=== PATIENT | male | born 2000 | race Caucasian/White ===

== ENCOUNTER 2023-11-29 12:54 | Emergency (ER) | payer MEDICAID ==
[~2023-11-29] VITALS: Ht 195.6 cm; Wt 80.3 kg
[2023-11-29 17:43] VITALS: BP 117/76; PULSE 66; RESP 16; TEMP 98.3; O2SAT 99
== END 2023-11-29 17:44 | disposition home or self-care (01) ==
LOC: ER 12:55
DX: R51.9 Headache, unspecified (principal)
CPT/HCPCS: 70450; 99284

== ENCOUNTER 2023-12-13 20:00 | Emergency (ER) | payer MEDICAID ==
[~2023-12-13] VITALS: Ht 195.6 cm; Wt 79.0 kg
[2023-12-13 20:54] VITALS: BP 128/83; PULSE 102; RESP 18; TEMP 99; O2SAT 99
[2023-12-13] MEDS: amox tr/potassium clavulanate 875/125mg TAB PO ONE (21:55)
[2023-12-13] MEDS ORDERED: CIPR10DR RIGHT EAR (21:59)
[2023-12-13] MEDS ORDERED: AMOX-117 PO (21:59)
== END 2023-12-13 22:06 | disposition home or self-care (01) ==
LOC: ER 20:00
DX: H72.91 Unspecified perforation of tympanic membrane, right ear (principal)
CPT/HCPCS: 99283

== ENCOUNTER 2025-05-08 15:50 | Emergency (ER) | payer MEDICAID ==
[~2025-05-08] VITALS: Ht 195.6 cm; Wt 80.1 kg
[2025-05-08 15:54] VITALS: TEMP 97
--- NOTE | 2025-05-08 16:06 | ELECTROCARDIOGRAPH REPORT ---
[facility] Test Date: 2025-05-08 Test Time: 16:04:12 Pat Name: MEGAN LOZADA Department: EMERGENCY ROOM Room: Gender: M Genetics Physician: MANDA : [id number] Requested By: YUKI SOLARES Order Number: [id number] Reading MD: Dr. Yuki Solares Measurements Intervals Smiley Rate: 77 P: 3 TX: 88 QRS: 80 QRSD: 113 T: 51 QT: 361 QTc: 409 Interpretive Statements Sinus rhythm Short TX interval Incomplete right bundle branch block Electronically Signed On 05-08-2025 16:11:[address] Yuki Solares Please click the below link to view image of tracing.
--- NOTE | 2025-05-08 16:35 | RADIOLOGY REPORT ---
EXAM: DI CHEST,SINGLE VIEW CLINICAL HISTORY: CP TECHNIQUE: Single PA view of the chest WID: COMPARISON: None FINDINGS: Lines and tubes: None Chest: The heart size and pulmonary vasculature is within normal limits. No pleural effusion, pneumothorax, or consolidation. The osseous structures are grossly intact. IMPRESSION: 1. No acute cardiopulmonary abnormality.
[2025-05-08 16:43] LABS: MEAN PLATELET VOLUME 7.2 FL (7.4-10.4); RED CELL DISTRIBUTION WIDTH 13.1 % (11.5-14.5)
[2025-05-08 17:06] LABS: CREATININE 0.91 MG/DL (0.60-1.10); PRO BRAIN NATRIURETIC PEPTIDE 42 PG/ML (0-125); TOTAL CARBON DIOXIDE 27.3 MMOL/L (24-32); eCRCL 142 ML/MIN; eGFR > 90 ML/MIN
--- NOTE | 2025-05-08 17:20 | Physician Documentation ---
History of Present Illness ~ Chief Complaint: Chest Pain Stated Complaint: CHEST PRESSURE Time Seen by MD: 16:35 Source: patient, family Mode of Arrival: POV Exam Limitations: no limitations HPI Patient presents secondary to chest pressure. He states onset chest pressure at rest at 10:00 a.m. this morning with associated shortness for breath. Location in the center of the chest and nonradiating. Initially was rated 5/10 now 2/10. 2-3 days ago his family member states he had a near syncopal episode. He was sitting in a chair and felt his vision go dark. No syncope. Medication Reconciliation Allergies: Coded Allergies: No Known Allergies (Unverified , 05/08/25) Past Medical History Past Medical History: No Pertinent History, Hypertension Past Surgical History: no surgical history Smoking Status: Never smoker Alcohol Use: None Drug Use: none Review of Systems ROS Systems negative except documented in HPI. Physical Exam Vital Signs: RN Vital Signs have been reviewed: Yes, Temperature: 97.0, Source: Temporal, Heart Rate: 88, Respiratory Rate: 16, BP: 143/77, Pulse Oximetry: 99, Weight: 80.100 Oxygen Flow Rate: 0 Pulse Oximetry Reflects: adequate oxygenation Physical Exam General: Awake, alert, oriented. No apparent distress Respiratory: Lungs are clear to auscultation bilaterally. No respiratory distress. Chest: Normal shape and size. No accessory muscle use. Cardiovascular: Regular rate and rhythm. S1-S2. No murmur, gallop, rub. Gastrointestinal: Abdomen is soft. Nontender to palpation. Bowel sounds present. Extremities: No lower extremity edema, cyanosis or clubbing. Neurologic: Alert and oriented x4. Nonfocal Psychiatric: Normal mood and affect. Skin: Normal color. Warm and dry. Progress Results/Orders Results/Orders Completed Orders - SUNIL CHILDRESS PROFESSOR OF COUNSELING ESR (05/08/25 18:05) Vital Signs 05/08/25 05/08/25 05/08/25 15:54 17:43 19:16 Temp 97.0 Pulse 88 78 Resp 16 16 15 B/P (MAP) 143/77 102/71 (81) Pulse Ox 99 100 O2 Flow Rate 0 Laboratory Tests Test 05/08/25 16:36 05/08/25 18:06 White Blood Count 6.5 Red Blood Count 5.39 Hemoglobin 17.0 Hematocrit 49.1 Mean Corpuscular Volume 91.1 Mean Corpuscular Hemoglobin 31.6 H Mean Corpuscular Hemoglobin Concent 34.7 Red Cell Distribution Width 13.1 Platelet Count 240 Mean Platelet Volume 7.2 L Neutrophils (%) (Auto) 77.8 H Lymphocytes (%) (Auto) 16.7 L Monocytes (%) (Auto) 4.7 Eosinophils (%) (Auto) 0.4 Basophils (%) (Auto) 0.4 Neutrophils # (Auto) 5.0 Lymphocytes # (Auto) 1.1 Monocytes # (Auto) 0.3 Eosinophils # (Auto) 0.0 Basophils # (Auto) 0.0 CBC Comment Erythrocyte Sedimentation Rate 1 Sodium Level 139 Potassium Level 3.8 Chloride Level 104 Carbon Dioxide Level 27.3 Anion Gap 8 Blood Urea Nitrogen 11 Creatinine 0.91 Estimated GFR/1.73 m2 > 90 BUN/Creatinine Ratio 12.1 Glucose Level 101 Calcium Level 9.4 Troponin I High Sensitivity 7 7 C-Reactive Protein < 0.05 Pro-B-Type Natriuretic Peptide 42 Albumin 4.6 Chemistry Comments Troponin I High Sens Percent Delta 0 Troponin I Hi Sens Absolute Change 0 EKG/XRAY/CT/US/VASC/MRI EKG : Intepreting Monitor?: Yes Indication: chest pain EKG: NSR EKG Blocks: none [place]: normal Hypertrophy: none Additional Comment Independent EKG interpretation by me: Sinus rhythm rate of 77. [place] is normal. NH interval short of 88 milliseconds. Monitor interpretation, sinus arrhythmia with bursts of paroxysmal atrial tachycardia. Chest X-Ray : Interpreted By: both Views: 1 VIEW Indication: chest pain Lungs: normal Mediastinum: normal Ribs/Bones: normal Impression: no acute disease Additional Comments [address] [address] DIAGNOSTIC RADIOLOGY Patient: MEGAN LOZADA Medical Record: [id number] [facility] : 2000, Age: 24 Sex: Male Location: ER Patient Status: REG ER Service Date/Time: 05/08/251599 Ordering Physician: YUKI SOLARES MD Exam: CHEST,SINGLE VIEW EXAM: DI CHEST,SINGLE VIEW CLINICAL HISTORY: CP TECHNIQUE: Single PA view of the chest WID: COMPARISON: None FINDINGS: Lines and tubes: None Chest: The heart size and pulmonary vasculature is within normal limits. No pleural effusion, pneumothorax, or consolidation. The osseous structures are grossly intact. IMPRESSION: 1. No acute cardiopulmonary abnormality. Electronically Signed by:SUNG VERNON MD Date & Time: 05/08/251632 Dictated by: SUNG VERNON MD Dictation date and time: 05/08/251632 Primary Care Provider: NO PRIMARY CARE PROVIDER cc: YUKI SOLARES MD ~ Medical Decision Making Additional information obtaine: family, N/A Findings Presented with chest pain that is worse with leaning forward and improves with lying back. He describes the pain as pressure. He denies palpitations. His EKG was without acute ST changes. High sensitivity troponin was negative x2. He denies recent illness. Denies fevers or chills. Concern for possible pericarditis. There is no ST elevation NH depression consistent with pericarditis. His sed rate was negative in his CRP was also negative. I have low clinical suspicion for this underlying etiology. His x-ray did not show any arrhythmias however on the monitor he did have sinus arrhythmia with intermittent paroxysmal atrial tachycardia which was noted by me. Discussed staying well hydrated. Recommend that he follow up with his primary care provider. Pain not consistent with aortic dissection. Centered pulmonary embolism. No risk factors and no tachycardia. No shortness a breath. As noted above low clinical suspicion for acute coronary syndrome. Pericarditis and myocarditis considered. Considered pneumonia or other infectious etiologies which he does not have a fever, tachycardia or x-ray evidence of infectious process. Musculoskeletal etiologies were considered. The case was discussed with the attending physician, Kyle. The plan of care, diagnostic evaluation and medical decision making were discussed. The attending physician was available for consultation, where the diagnostic findings as well as the eventual disposition. Heart Score: 0 Differential Dx:Considerations: Include: aortic dissection, chest wall pain, cholelithiasis, esophageal reflux/spasm, myocardial infarction, pericarditis, pleuritis, pneumonia, pulmonary embolus Departure Time of Disposition: 19:10 Disposition: 01 HOME / SELF CARE / HOMELESS Impression: Primary Impression: Chest pain, unspecified Qualified Codes: R07.9 - Chest pain, unspecified Condition: Stable Additional Instructions: Your laboratory evaluation in the emergency department was normal. Your EKG did not show a heart attack. sales special agent did show a sinus arrhythmia and intermittent fast heartbeats. Recommend that you stay well hydrated. Avoid excessive caffeine. Avoid alcohol. Follow up with your primary care provider. Please return for new or worsening symptoms. Referrals: NO PRIMARY CARE PROVIDER (PCP) Education Educated: Patient Educated regarding: diagnosis, treatment, prognosis, other Signature Scribe Signature: No scribe Attestation: The note accurately reflects work and decisions made by me.Sunil Childress - [place] 05/08/25 22:29 This note was created with the assistance of voice recognition software whereby errors in grammar, syntax, and/or spelling may have occurred despite active proofreading efforts by the author. Please do not hesitate to contact the provider for clarification or for questions regarding the content of this document. SUNIL CHILDRESS NP May 08, 2025 17:20
[2025-05-08 19:16] VITALS: BP 102/71; PULSE 78; RESP 15; O2SAT 100
== END 2025-05-08 19:19 | disposition home or self-care (01) ==
LOC: ER 15:51
DX: R07.9 Chest pain, unspecified (principal); I10 Essential (primary) hypertension
CPT/HCPCS: 36415; 71045; 80048; 83880; 84484; 85025; 85651; 86140; 93005; 99285